=== PATIENT | female | born 1960 | race Caucasian/White ===

== ENCOUNTER → 2021-08-09 | Outpatient (CLI) | payer BC ==
[~2021-08-09] MED LIST: BAMLANIVIMAB (EUA) 700 MG, ETESEVIMAB (EUA) 1,400 MG in SODIUM CHLORIDE 0.9% 50 ML IVPB ONE; SODIUM CHLORIDE 0.9% 50 ML IVPB ONE; SODIUM CHLORIDE 0.9% 500 ML 500 ML in EMPTY BAG 1 BAG IV PRN
--- NOTE | 2021-08-09 12:34 | ED ---
URI HPI - General Chief Complaint: Upper Respiratory Infection Stated Complaint: COVID+,wants antibodies Time Seen by Provider: 08/09/21 11:20 Source: patient, RN notes reviewed Mode of arrival: ambulatory Limitations: no limitations - History of Present Illness Initial Comments: Patient is a 61-year-old female presenting to the emergency department req uesting Covid antibodies. Patient states she started developing a dry mouth, some mild congestion and mild cough yesterday. She took an at home covid test yesterday and it was positive. She denies any chest pains or shortness of breath, no fevers or chills. She denies history of asthma or COPD, she is a nonsmoker. She denies any abdominal pain, nausea or vomiting. She states that she feels fairly well. She has no further complaints. Her vital signs are stable upon arrival. - Related Data Home Medications Medication Instructions Recorded Confirmed Multivit with Calcium,Iron,Min 1 each PO DAILY 09/25/15 10/02/15 [Women's Daily Multivitamin] Naproxen Sodium [Aleve] 220 mg PO BID PRN 09/25/15 10/02/15 [place]-3 Fatty Acids/Fish Oil [Fish 1 each PO DAILY 09/25/15 10/02/15 Oil 1,000 mg Softgel] Allergies Allergy/AdvReac Type Severity Reaction Status Date / Time cold medication Allergy Rash/Hives Uncoded 08/09/21 10:35 Review of Systems ROS Statement: Those systems with pertinent positive or pertinent negative responses have been documented in the HPI. ROS Other: All systems not noted in ROS Statement are negative. Past Medical History Past Medical History: No Reported History History of Any Multi-Drug Resistant Organisms: None Reported Past Surgical History: Orthopedic Surgery Additional Past Surgical History / Comment(s): carpal tunel surg., rectal prolapse repair x 2, bunionectomy Past Anesthesia/Blood Transfusion Reactions: No Reported Reaction Past Psychological History: No Psychological Hx Reported Smoking Status: Never smoker Past Alcohol Use History: None Reported Past Drug Use History: None Reported - Past Family History Mother Family Medical History: Cancer General Exam - General Exam Comments Initial Comments: GENERAL: Patient is well-developed and well-nourished. Patient is nontoxic and in no acute distress. HEAD: Atraumatic, normocephalic. EYES: Pupils equal round and reactive to light, extraocular movements intact, sclera anicteric, conjunctiva are normal. Eyelids were unremarkable. ENT: Oropharynx clear without exudates. Moist mucous membranes. NECK: Normal range of motion, supple without lymphadenopathy or JVD. LUNGS: Unlabored respirations. Breath sounds clear to auscultation bilaterally and equal. No wheezes rales or rhonchi. HEART: Regular rate and rhythm without murmurs, rubs or gallops. MUSCULOSKELETAL: Normal extremities with adequate strength and normal range of motion, no pitting or edema. No clubbing or cyanosis. NEUROLOGICAL: Patient is alert and oriented x 3. SKIN: Warm, Dry, normal turgor, no rashes or lesions noted. Limitations: no limitations Course Vital Signs 08/09/21 10:35 Temperature 98.1 F Pulse Rate 73 Respiratory 18 Rate Blood Pressure 129/85 O2 Sat by Pulse 98 Oximetry Medical Decision Making - Medical Decision Making Patient is a 61-year-old female here with concerns for cardiac,requesting Covid antibodies. She had a rapid test at home which was positive, our test today is positive as well. Her vitals are stable, her exam is unremarkable otherwise. Patient will receive covert antibodies and will be discharged home. I gave her return parameters and she is in agreement with this plan of care. - Lab Data Lab Results 08/09/21 Range/Units 11:53 Coronavirus (PCR) Detected A (Not Detectd) Disposition Clinical Impression: COVID-19 Disposition: HOME SELF-CARE Condition: Stable Instructions (If sedation given, give patient instructions): Coronavirus Disease 2019 (COVID-19) Additional Instructions: Please return to the Emergency Department if symptoms worsen or any other concerns. Follow-up with your primary care as needed. Is patient prescribed a controlled substance at d/c from ED?: No Referrals: Adrianna Quiñones MD [Primary Care Provider] - 1-2 days Time of Disposition: 12:34
[2021-08-09 13:55] VITALS: RESP 16; TEMP 98.9
[2021-08-09 14:23] VITALS: BP 141/83; PULSE 73
== END ==
LOC: PROCWHC3 10:25 → EC 10:25 → EDSTATUS 13:47
PROVIDERS: ATTEND Specialist/Technologist Athletic Trainer
DX: U07.1 COVID-19 (principal)
CPT/HCPCS: 87635; 96361; 96365; J3490; M0245